=== PATIENT | female | born 1960 | race Caucasian/White ===

== ENCOUNTER 2018-02-02 08:41 | Emergency (ER) | payer MEDICAID, MEDICARE ==
[~2018-02-02] VITALS: Ht 172.7 cm; Wt 65.0 kg
[~2018-02-02 08:41] MED LIST: CYCL-36 PO; DIAZ5 PO; LYRI100C PO; MOBI15TA PO; OXYC20 PO; PYRI200T4 PO; SULF-154 PO
[2018-02-02 08:45] VITALS: BP 140/83; PULSE 76; RESP 16; TEMP 98.8; O2SAT 100
--- NOTE | 2018-02-02 09:21 | PD ---
HPI Chief Complaint: Neuro Symptoms/ Deficits Time Seen by Provider: 09:08 Travel History International Travel<30 days: No Contact w/Intl Traveler<30days: No Traveled to known affect area: No History of Present Illness HPI 57-year-old female here for evaluation of generalized weakness, pain in her bilateral hands and feet, and confusion. The patient is visiting from [place] and is staying with her ex-. She has history of chronic pain and takes 10 mg of OxyContin twice daily, 5 mg of Valium twice daily, and Lyrica. She tells me that she has not been overusing these medications. She describes a pins and needles sensation in her bilateral hands and feet. No fevers or recent illness. Her ex- is here and reports that her symptoms started about 3 days ago and it seems as though when she was eating she appeared to be moving in slow motion. PFSH Past Medical History Arthritis: Yes Asthma: Yes Autoimmune Disease: No Blood Disorders: No Anxiety: No Depression: No Heart Rhythm Problems: No Cancer: No Cardiovascular Problems: No High Cholesterol: No Chemotherapy: No Chest Pain: No Congestive Heart Failure: No COPD: No Cerebrovascular Accident: Yes Diabetes: No Diminished Hearing: No Endocrine: No Gastrointestinal Disorders: Yes GERD: Yes Genitourinary: Yes Hiatal Hernia: No Immune Disorder: No Kidney Stones: No Neurologic: Yes (CVA 2004, RT. SIDED WEAKNESS. SEVERAL TIA'S,NEUROPATHY) Psychiatric: No Reproductive: Yes (2 MISCARRIAGES) Respiratory: Yes Immunizations Current: Yes Migraines: No Radiation Therapy: No Renal Failure: No Seizures: No Sickle Cell Disease: No Sleep Apnea: No Thyroid Disease: Yes (THYROID CYST) Ulcer: Yes (NOT ACTIVE) ?: Not Menopausal: Yes : 4 Para: 2 Miscarriage: 2 Ovarian Cysts: Yes Tubal Ligation: Yes Past Surgical History Abdominal Surgery: Yes (APPENDECTOMY, LYSIS OF ABDOMINAL ADHESIONS) AICD: No Appendectomy: Yes Arteriovenous Shunt: No Body Medical Devices: REFLEX SYMPATHETIC DYSTROPHY Cardiac Surgery: No Section: Yes Ear Surgery: Yes (REMOVAL OF CALCIUM DEPOSITS ON LEFT EAR) Endocrine Surgery: Yes Eye Surgery: No Gynecologic Surgery: Yes (TUBAL LIGATION, ) Insulin Pump: No Joint Replacement: No Neurologic Surgery: No Thoracic Surgery: No Other Surgery: Yes Social History Alcohol Use: Yes (RARELY) Tobacco Use: Yes (e cig) Substance Use: No Allergies-Medications (Allergen,Severity, Reaction): Coded Allergies: No Known Allergies (Verified , 05/23/14) Reported Meds & Prescriptions Reported Meds & Active Scripts Active Reported Baclofen 10 Mg Tab 10 Mg PO TID Valium (Diazepam) 10 Mg Tab 10 Mg PO BID PRN Lyrica (Pregabalin) 150 Mg Cap 150 Mg PO BID Oxycodone (Oxycodone HCl) 10 Mg Tab 10 Mg PO Q6H PRN Oxycontin (Oxycodone HCl) 10 Mg Tab 10 Mg PO Q12HR Review of Systems Except as stated in HPI: all other systems reviewed are Neg Physical Exam Narrative GENERAL: Well-developed, thin, awake, alert, comfortable, no apparent distress. Ambulated to the restroom without assistance. SKIN: Focused skin assessment warm/dry. No rash. HEAD: Atraumatic. Normocephalic. EYES: Pupils equal, round, 3 mm, reactive to light. EOMI. No scleral icterus. No injection or drainage. ENT: No nasal bleeding or discharge. Mucous membranes pink and moist. NECK: Trachea midline. No JVD. No nuchal rigidity. CARDIOVASCULAR: Regular rate and rhythm. RESPIRATORY: No accessory muscle use. Clear to auscultation. Breath sounds equal bilaterally. GASTROINTESTINAL: Abdomen soft, non-tender, nondistended. Hepatic and splenic margins not palpable. MUSCULOSKELETAL: No obvious deformities. No clubbing. No cyanosis. No edema. No warmth or erythema to any joint or extremity. Bilateral calves are supple, nontender. NEUROLOGICAL: Awake and alert. No obvious cranial nerve deficits. Motor grossly within normal limits. Normal speech. No focal deficits. PSYCHIATRIC: Flat affect. Poor eye contact. Data Data Last Documented VS Vital Signs Date Time Temp Pulse Resp B/P (MAP) Pulse Ox O2 Delivery O2 Flow Rate FiO2 02/02/18 11:21 69 16 162/79 (106) 98 02/02/18 08:58 Room Air 02/02/18 08:45 98.8 Orders Orders Complete Blood Count With Diff (02/02/18 09:16) Comprehensive Metabolic Panel (02/02/18 09:16) Prothrombin Time / Inr (Pt) (02/02/18 09:16) Act Partial Throm Time (Ptt) (02/02/18 09:16) Urinalysis - C+S If Indicated (02/02/18 09:16) Iv Access Insert/Monitor (02/02/18 09:16) Ecg Monitoring (02/02/18 09:16) Oximetry (02/02/18 09:16) Sodium Chloride 0.9% Flush (Ns Flush) (02/02/18 09:30) Ct Brain W/O Iv Contrast(Rout) (02/02/18 ) Ammonia (02/02/18 09:16) Foot, Complete ([id number]) (02/02/18 ) Foot, Complete ([id number]) (02/02/18 ) Us Leg Venous Doppler Bilat (02/02/18 ) Sodium Chlorid 0.9% 500 Ml Inj (Ns 500 M (02/02/18 11:00) Ketorolac Inj (Toradol Inj) (02/02/18 11:00) Labs Laboratory Tests Test 02/02/18 09:20 02/02/18 09:25 02/02/18 09:27 Urine Color LIGHT-YELLOW Urine Turbidity HAZY Urine pH 7.0 Urine Specific [place] 1.010 Urine Protein NEG mg/dL Urine Glucose (UA) NEG mg/dL Urine Ketones NEG mg/dL Urine Occult Blood NEG Urine Nitrite NEG Urine Bilirubin NEG Urine Urobilinogen LESS THAN 2.0 MG/DL Urine Leukocyte Esterase SMALL Urine RBC 2 /hpf Urine WBC 3 /hpf Urine Squamous Epithelial Cells 13 /hpf Urine Bacteria RARE /hpf Urine Mucus FEW /lpf Microscopic Urinalysis Comment CULT NOT INDICATED White Blood Count 5.9 TH/MM3 Red Blood Count 4.54 MIL/MM3 Hemoglobin 13.0 GM/DL Hematocrit 38.7 % Mean Corpuscular Volume 85.3 FL Mean Corpuscular Hemoglobin 28.7 PG Mean Corpuscular Hemoglobin Concent 33.7 % Red Cell Distribution Width 13.4 % Platelet Count 201 TH/MM3 Mean Platelet Volume 7.9 FL Neutrophils (%) (Auto) 57.7 % Lymphocytes (%) (Auto) 34.2 % Monocytes (%) (Auto) 6.9 % Eosinophils (%) (Auto) 1.0 % Basophils (%) (Auto) 0.2 % Neutrophils # (Auto) 3.4 TH/MM3 Lymphocytes # (Auto) 2.0 TH/MM3 Monocytes # (Auto) 0.4 TH/MM3 Eosinophils # (Auto) 0.1 TH/MM3 Basophils # (Auto) 0.0 TH/MM3 CBC Comment DIFF FINAL Differential Comment Prothrombin Time 10.4 SEC Prothromb Time International Ratio 1.0 RATIO Activated Partial Thromboplast Time 24.7 SEC Blood Urea Nitrogen 10 MG/DL Creatinine 0.67 MG/DL Random Glucose 93 MG/DL Total Protein 7.1 GM/DL Albumin 3.6 GM/DL Calcium Level 8.7 MG/DL Alkaline Phosphatase 106 U/L Aspartate Amino Transf (AST/SGOT) 28 U/L Alanine Aminotransferase (ALT/SGPT) 18 U/L Total Bilirubin 0.6 MG/DL Sodium Level 143 MEQ/L Potassium Level 3.7 MEQ/L Chloride Level 108 MEQ/L Carbon Dioxide Level 29.1 MEQ/L Anion Gap 6 MEQ/L Estimat Glomerular Filtration Rate 90 ML/MIN Ammonia 12 MCMOL/L [facility] Medical Decision Making Medical Screen Exam Complete: Yes Emergency Medical Condition: Yes Differential Diagnosis Metabolic abnormality, intracranial abnormality, UTI, polysubstance use Narrative Course Initial vital signs show heart rate 76, blood pressure 140/83, pulse ox 100% on room air, oral temperature 98.8F. CBC is unremarkable. CMP is unremarkable. Ammonia is 12. UA is not suggestive of UTI. CT head: Negative noncontrast CT brain. Bilateral lower extremity duplex: CONCLUSION: Negative study. No DVT of either lower extremity. Bilateral foot x-rays: CONCLUSION: Osteopenia, otherwise negative exam. Patient was made aware of all findings. She is awake and alert and oriented to person place and time. There are no focal deficits on exam. All compartments in all 4 extremities are supple. There is mild edema to her bilateral feet without warmth or erythema. Her bilateral feet are moderately tender. Bilateral calves are supple, nontender. Patient tells me that she is trying to make her way back to [place] where she can see her regular physician and painter touch up. At this point I believe she is stable for discharge home outpatient follow-up. She was advised on when to return to the emergency department. She verbalizes understanding and agreement with plan. Diagnosis Primary Impression: Generalized weakness Additional Impression: Bilateral foot pain Referrals: [facility] 3 days Additional Instructions: Follow-up with a primary care physician this week. Return to the emergency department for worsening symptoms or any other concerns. Disposition: 01 DISCHARGE HOME Condition: Stable Lion Barboza MD Feb 02, 2018 09:21
[2018-02-02] MEDS ORDERED: SODIUM CHLORIDE 0.9% FLUSH 10 ML FLUSH IV FLUSH PRN (09:30)
[2018-02-02 09:50] LABS: AUTOMATED NEUTROPHIL # 3.4 TH/MM3 (1.8-7.7); BASOPHIL % 0.2 % (0.0-2.0); EOSINOPHIL # 0.1 TH/MM3 (0-0.4); HEMATOCRIT 38.7 % (35.0-46.0); LYMPH % 34.2 % (9.0-44.0); MEAN CELL VOLUME 85.3 FL (80.0-100.0); MEAN CORPUSCULAR HEMOGLOBIN 28.7 PG (27.0-34.0); MEAN CORPUSCULAR HGB CONC 33.7 % (32.0-36.0); MEAN PLATELET VOLUME 7.9 FL (7.0-11.0); MONO % 6.9 % (0.0-8.0); MONOCYTE # 0.4 TH/MM3 (0-0.9); NEUT % 57.7 % (16.0-70.0); PLATELET COUNT 201 TH/MM3 (150-450); RED BLOOD COUNT 4.54 MIL/MM3 (4.00-5.30); RED CELL DISTRIBUTION WIDTH 13.4 % (11.6-17.2); WHITE BLOOD COUNT 5.9 TH/MM3 (4.0-11.0)
[2018-02-02 09:52] LABS: BACTERIA, URINE RARE /hpf; BILIRUBIN, URINE NEG (NEG); BLOOD, URINE NEG (NEG); GLUCOSE,URINE NEG (NEG); KETONE, URINE NEG (NEG); MUCUS URINE FEW /lpf (OCC); NITRITE,URINE NEG (NEG); SQUAMOUS EPITHELIAL CELL URINE 13 /hpf (0-5); URINE COLOR LIGHT-YELLOW (YELLW/STRAW); URINE LEUKOCYTE ESTERASE SMALL (NEG)
--- NOTE | 2018-02-02 10:00 | RADRPT ---
EXAM DATE/TIME: 02/02/2018 09:36 [facility] COMPARISON: CT BRAIN W/O CONTRAST, June 12, 2012, 19:43. INDICATIONS : Confusion, memory loss RADIATION DOSE: 38.84 CTDIvol (mGy) MEDICAL HISTORY : Cerebrovascular disease. SURGICAL HISTORY : None. ENCOUNTER: Initial ACUITY: 1 day PAIN SCALE: 0/10 LOCATION: cranial TECHNIQUE: Multiple contiguous axial images were obtained of the head. Using automated exposure control and adj ustment of the mA and/or kV according to patient size, radiation dose was kept as low as reasonably a chievable to obtain optimal diagnostic quality images. DICOM format image data is available electro nically for review and comparison. FINDINGS: CEREBRUM: The ventricles are normal for age. No evidence of midline shift, mass lesion, hemorrhage or acute in farction. No extra-axial fluid collections are seen. POSTERIOR FOSSA: The cerebellum and brainstem are intact. The 4th ventricle is midline. The cerebellopontine angle i s unremarkable. EXTRACRANIAL: The visualized portion of the orbits is intact. SKULL: The calvaria is intact. No evidence of skull fracture. CONCLUSION: 1. Negative noncontrast CT brain Ken Lopez MD on February 02, 2018 at 9:56 Board Certified Radiologist. This report was verified electronically.
[2018-02-02 10:02] LABS: PROTHROMBIN TIME - PATIENT 10.4 SEC (9.8-11.6)
[2018-02-02 10:05] LABS: ALBUMIN 3.6 GM/DL (3.4-5.0); ALT (GPT) 18 U/L (10-53); AST (GOT) 28 U/L (15-37); BICARBONATE 29.1 MEQ/L (21.0-32.0); BLOOD UREA NITROGEN 10 MG/DL (7-18); CALCIUM 8.7 MG/DL (8.5-10.1); CHLORIDE 108 MEQ/L (98-107); CREATININE 0.67 MG/DL (0.50-1.00); GLOMERULAR FILTRATION RATE 90 ML/MIN (>89); GLUCOSE,RANDOM 93 MG/DL (74-106); SODIUM (NA) 143 MEQ/L (136-145)
[2018-02-02 10:08] LABS: ALKALINE PHOSPHATASE 106 U/L (45-117); TOTAL BILIRUBIN ADULT 0.6 MG/DL (0.2-1.0); TOTAL PROTEIN 7.1 GM/DL (6.4-8.2)
[2018-02-02] MEDS ORDERED: KETOROLAC TROMETHAMINE 30 MG/ML (IVP) VIAL IV PUSH ONE (11:00)
[2018-02-02] MEDS ORDERED: SODIUM CHLORID 0.9% 500 ML INJ 500 ML IV ONE (11:00)
[2018-02-02 11:21] VITALS: BP 162/79; PULSE 69; RESP 16; O2SAT 98
[2018-02-02] MEDS ORDERED: BACL10TA PO (11:29)
[2018-02-02] MEDS ORDERED: OXYC-103 PO (11:29)
[2018-02-02] MEDS ORDERED: DIAZ10 PO (11:29)
[2018-02-02] MEDS ORDERED: OXYC-395 PO (11:29)
[2018-02-02] MEDS ORDERED: LYRI150C PO (11:29)
--- NOTE | 2018-02-02 11:45 | RADRPT ---
EXAM DATE/TIME: 02/02/2018 11:12 [facility] COMPARISON: No previous studies available for comparison. INDICATIONS : Left foot pain and swelling. No known injury. Painful when walking. MEDICAL HISTORY : Cerebrovascular disease. SURGICAL HISTORY : None. ENCOUNTER: Initial ACUITY: 3 days PAIN SCORE: 10/10 LOCATION: Left foot. FINDINGS: Three view examination of the left foot demonstrates no soft tissue swelling, dislocation, or fractur e. No evidence of periosteal reaction. The tarsal bones appear intact. The interphalangeal and me tatarsophalangeal joints are intact. The calcaneus is intact. Bony mineralization is mildly decreas ed. CONCLUSION: Osteopenia, otherwise negative exam. Ken Lopez MD on February 02, 2018 at 11:42 Board Certified Radiologist. This report was verified electronically.
--- NOTE | 2018-02-02 11:45 | RADRPT ---
EXAM DATE/TIME: 02/02/2018 11:09 [facility] COMPARISON: No previous studies available for comparison. INDICATIONS : Right foot swelling and pain. No known injury. Painful when walking. MEDICAL HISTORY : Cerebrovascular disease. SURGICAL HISTORY : None. ENCOUNTER: Initial ACUITY: 3 days PAIN SCORE: 10/10 LOCATION: Right foot. FINDINGS: Three view examination of the right foot demonstrates no soft tissue swelling, dislocation, or fractu re. No evidence of periosteal reaction. The tarsal bones appear intact. The interphalangeal and m etatarsophalangeal joints are intact. The calcaneus is intact. Bony mineralization is mildly decrea sed. No radiopaque foreign bodies. CONCLUSION: Mild osteopenia. Otherwise negative exam. Ken Lopez MD on February 02, 2018 at 11:42 Board Certified Radiologist. This report was verified electronically.
--- NOTE | 2018-02-02 12:37 | RADRPT ---
EXAM DATE/TIME: 02/02/2018 11:14 [facility] COMPARISON: No previous studies available for comparison. EXTERNAL COMPARISON : [facility], US LEG VENOUS DOPPLER, BILATERAL, September 05, 2010 INDICATIONS : Bilateral leg swelling. MEDICAL HISTORY : Gastroesophageal reflux disease. CVA. Ulcer. SURGICAL HISTORY : Appendectomy.Tubal ligation. section.Abdominal adhesion removal. ENCOUNTER: Subsequent ACUITY: 1 day PAIN SCORE: 0/10 LOCATION: Bilateral legs. TECHNIQUE: Venous ultrasound of the left and right leg was performed from the inguinal ligament to the proximal calf. Real-time, color Doppler and spectral tracing, compression and augmentation techniques were us ed. FINDINGS: RIGHT LEG: There is normal compressibility of the deep venous system from the inguinal region to the proximal ca lf. No echogenic clot is seen in the lumen of the common femoral, femoral, popliteal, and posterior tibial veins. There is a normal response of the venous system to proximal and distal augmentation an d respiration. LEFT LEG: There is normal compressibility of the deep venous system from the inguinal region to the proximal ca lf. No echogenic clot is seen in the lumen of the common femoral, femoral, popliteal, and posterior tibial veins. There is a normal response of the venous system to proximal and distal augmentation an d respiration. CONCLUSION: Negative study. No DVT of either lower extremity. Alvarado Boyd MD on February 02, 2018 at 12:35 Board Certified Radiologist. This report was verified electronically.
== END 2018-02-02 13:55 | disposition home or self-care (01) ==
LOC: NEPE 08:41
DX: R53.1 Weakness (principal); M79.671 Pain in right foot; M79.672 Pain in left foot; G89.29 Other chronic pain
CPT/HCPCS: 70450; 73630; 80053; 81001; 82140; 85025; 85610; 85730; 93970; 96374; 99284; J1885; J7040

== ENCOUNTER 2018-02-16 15:44 | Emergency (ER) | payer MEDICARE ==
[~2018-02-16 15:44] MED LIST changes: +BACL10TA PO; -CYCL-36 PO; +DIAZ10 PO; -DIAZ5 PO; -LYRI100C PO; +LYRI150C PO; -MOBI15TA PO; +OXYC-103 PO; +OXYC-395 PO; -OXYC20 PO; -PYRI200T4 PO; -SULF-154 PO
[2018-02-16 16:12] VITALS: BP 110/59; PULSE 81; RESP 16; TEMP 98.4; O2SAT 97
--- NOTE | 2018-02-16 16:28 | PD ---
HPI Chief Complaint: Oral / Dental Pain or Problem Time Seen by Provider: 16:17 Travel History International Travel<30 days: No Contact w/Intl Traveler<30days: No Traveled to known affect area: No History of Present Illness HPI 57-year-old female presents emergency department with pain and swelling left lower jaw for the past 3 days. Patient is unsure if she has had fever but feels lousy. She has increased pain and swelling left lower jaw since yesterday. Patient denies significant swelling in the throat or neck. Patient has pain in the left ear. She denies any drainage on the underside of the mouth. Currently pain is 10/10. She feels somewhat nauseous but no vomiting or diarrhea. No chest pain or shortness of breath she has no known drug allergies. PFSH Past Medical History Arthritis: Yes Asthma: Yes Autoimmune Disease: No Blood Disorders: No Anxiety: No Depression: No Heart Rhythm Problems: No Cancer: No Cardiovascular Problems: No High Cholesterol: No Chemotherapy: No Chest Pain: No Congestive Heart Failure: No COPD: No Cerebrovascular Accident: Yes Diabetes: No Diminished Hearing: No Endocrine: No Gastrointestinal Disorders: Yes GERD: Yes Genitourinary: Yes Hiatal Hernia: No Immune Disorder: No Kidney Stones: No Neurologic: Yes (CVA 2004, RT. SIDED WEAKNESS. SEVERAL TIA'S,NEUROPATHY) Psychiatric: No Reproductive: Yes (2 MISCARRIAGES) Respiratory: Yes Immunizations Current: Yes Migraines: No Radiation Therapy: No Renal Failure: No Seizures: No Sickle Cell Disease: No Sleep Apnea: No Thyroid Disease: Yes (THYROID CYST) Ulcer: Yes (NOT ACTIVE) Menopausal: Yes : 4 Para: 2 Miscarriage: 2 Ovarian Cysts: Yes Tubal Ligation: Yes Past Surgical History Abdominal Surgery: Yes (APPENDECTOMY, LYSIS OF ABDOMINAL ADHESIONS) AICD: No Appendectomy: Yes Arteriovenous Shunt: No Body Medical Devices: REFLEX SYMPATHETIC DYSTROPHY Cardiac Surgery: No Section: Yes Ear Surgery: Yes (REMOVAL OF CALCIUM DEPOSITS ON LEFT EAR) Endocrine Surgery: Yes Eye Surgery: No Gynecologic Surgery: Yes (TUBAL LIGATION, ) Insulin Pump: No Joint Replacement: No Neurologic Surgery: No Thoracic Surgery: No Other Surgery: Yes Social History Alcohol Use: Yes (RARELY) Tobacco Use: Yes (e cig) Substance Use: No Allergies-Medications (Allergen,Severity, Reaction): Coded Allergies: No Known Allergies (Verified Adverse Reaction, Unknown, 4/16/18) Reported Meds & Prescriptions Reported Meds & Active Scripts Active Reported Baclofen 10 Mg Tab 10 Mg PO TID Valium (Diazepam) 10 Mg Tab 10 Mg PO BID PRN Lyrica (Pregabalin) 150 Mg Cap 150 Mg PO BID Oxycodone (Oxycodone HCl) 10 Mg Tab 10 Mg PO Q6H PRN Oxycontin (Oxycodone HCl) 10 Mg Tab 10 Mg PO Q12HR Review of Systems Except as stated in HPI: all other systems reviewed are Neg General / Constitutional: Positive: Chills, No: Fever Eyes: No: Visual changes HENT: Positive: Dental Difficulties, Earache, No: Headaches, Vertigo, Lightheadedness, Sore Throat, Rhinitis, Rhinorrhea, Congestion, Nosebleed, Neck Stiffness, Neck Pain, Gingival Bleeding, Ear Discharge Cardiovascular: No: Chest Pain or Discomfort Respiratory: No: Shortness of Breath Gastrointestinal: No: Abdominal Pain Genitourinary: No: Dysuria Musculoskeletal: No: Pain Skin: No Rash Neurologic: No: Weakness Psychiatric: No: Depression Endocrine: No: Polydipsia Hematologic/Lymphatic: No: Easy Bruising Physical Exam Narrative GENERAL: Patient is in moderate distress per SKIN: Warm and dry. Normal color. Normal turgor. Mild erythema noted over the left lower jaw. HEAD: Atraumatic. Normocephalic. Patient is obvious swelling of the left lower jaw consistent with dental abscess. EYES: Pupils equal and round. No scleral icterus. No injection or drainage. ENT: No nasal bleeding or discharge. Mucous membranes pink and moist. Teeth have no obvious broken areas or caries, however patient is obvious dental abscess the left lower first and second molars NECK: Trachea midline. Supple and nontender CARDIOVASCULAR: Regular rate and rhythm. RESPIRATORY: No accessory muscle use. Clear to auscultation. Breath sounds equal bilaterally. GASTROINTESTINAL: Abdomen soft, non-tender, nondistended. Hepatic and splenic margins not palpable. MUSCULOSKELETAL: Extremities without clubbing, cyanosis, or edema. No obvious deformities. NEUROLOGICAL: Awake and alert. No obvious cranial nerve deficits. Motor grossly within normal limits. Five out of 5 muscle strength in the arms and legs. Normal speech. PSYCHIATRIC: Appropriate mood and affect; insight and judgment normal. Data Data Last Documented VS Vital Signs Date Time Temp Pulse Resp B/P (MAP) Pulse Ox O2 Delivery O2 Flow Rate FiO2 02/16/18 16:12 98.4 81 16 110/59 (76) 97 Orders Orders Penicillin V Potassium (Veetids) (02/16/18 16:45) Ketorolac Inj (Toradol Inj) (02/16/18 16:45) MDM Medical Decision Making Medical Screen Exam Complete: Yes Emergency Medical Condition: Yes Differential Diagnosis Dental pain. Dental caries. Dental abscess. Narrative Course Patient is given 1000 mg Pen-Vee K p.o. now. Patient is given 60 mg Toradol IM now. Patient will be continued on Pen-Vee K 500 mg 4 times daily 10 days #40 Patient also given ibuprofen 600 mg 4 times daily #40. Patient is to use heat to the affected area frequently. Patient can use extra strength Tylenol as well as needed for pain. Patient should follow with dental resources as soon as possible. Information given. Diagnosis Primary Impression: Dental abscess Referrals: Dentist Patient Instructions: Dental Abscess (GEN), General Instructions Additional Instructions: Patient is given 1000 mg Pen-Vee K p.o. now. Patient is given 60 mg Toradol IM now. Patient will be continued on Pen-Vee K 500 mg 4 times daily 10 days #40 Patient also given ibuprofen 600 mg 4 times daily #40. Patient is to use heat to the affected area frequently. Patient can use extra strength Tylenol as well as needed for pain. Patient should follow with dental resources as soon as possible. Information given. Disposition: 01 DISCHARGE HOME Condition: Stable Ammon Ball Feb 16, 2018 16:28
[2018-02-16] MEDS ORDERED: PENI500T PO (16:39)
[2018-02-16] MEDS ORDERED: IBUP-232 PO (16:39)
[2018-02-16] MEDS ORDERED: PENICILLIN V POTASSIUM 500 MG TAB PO ONE (16:45)
[2018-02-16] MEDS ORDERED: KETOROLAC TROMETHAMINE 60 MG/2 ML (IM) VIAL IM ONE (16:45)
== END 2018-02-16 17:10 | disposition home or self-care (01) ==
LOC: NEPK 15:44
DX: K04.7 Periapical abscess without sinus (principal); J45.909 Unspecified asthma, uncomplicated; F17.290 Nicotine dependence, other tobacco product, uncomplicated; Z86.73 Personal history of transient ischemic attack (TIA), and cerebral infarction without residual deficits; Z79.899 Other long term (current) drug therapy
CPT/HCPCS: 96372; 99283; J1885